=== PATIENT | female | born 1975 | race Two or more races ===

== ENCOUNTER 2022-02-22 16:12 | Emergency (ER) | payer OTHER ==
[2022-02-22 16:20] VITALS: BP 154/88; PULSE 90; RESP 16; TEMP 98.1
[2022-02-22 17:10] LABS: Amorphous Sediment,Urine Occasional /hpf; Appearance,Urine Cloudy (Clear); Bacteria,Urine Occasional /hpf; Bilirubin,Urine Negative (Negative); Blood,Urine Small (Negative); Color,Urine Light Yellow; Glucose,Urine (UA) Negative (Negative); Hyaline Casts,Urine 1 /lpf (0-2); Ketones,Urine Negative (Negative); Leukocyte Esterase,Urine Negative (Negative); Mucus,Urine Rare /hpf; Nitrite,Urine Negative (Negative); PH, Urine 5.5 (5.0-8.0); Protein,Urine Negative (Negative); RBC,Urine 2 /hpf (0-5); Specific Gravity,Urine 1.007 (1.001-1.035); Squamous Epithelial Cell,Urine 4 /hpf (0-4); Urobilinogen,Urine <2.0 mg/dL (<2.0); WBC,Urine 4 /hpf (0-5)
[2022-02-22 19:24] LABS: Basophils % (A) 1 %; Eosinophils # (A) 0.1 k/uL (0-0.7); Eosinophils % (A) 2 %; HCT 36.1 % (34.0-46.0); HGB 11.9 gm/dL (11.4-16.0); Lymphocytes # (A) 1.7 k/uL (1.0-4.8); Lymphocytes % (A) 25 %; MCH 27.7 pg (25.0-35.0); MCHC 32.9 g/dL (31.0-37.0); MCV 84.3 fL (80.0-100.0); Monocytes # (A) 0.2 k/uL (0-1.0); Monocytes % (A) 3 %; Neutrophils # (A) 4.5 k/uL (1.3-7.7); Neutrophils % (A) 66 %; Platelet Count 244 k/uL (150-450); RBC 4.28 m/uL (3.80-5.40); RDW 13.9 % (11.5-15.5); WBC 6.8 k/uL (3.8-10.6)
[2022-02-22 19:34] LABS: African American GFR (CKD) >90 (>60 ml/min/1.73 sqM); Anion Gap 13 mmol/L; Blood Urea Nitrogen 8 mg/dL (7-17); Carbon Dioxide 24 mmol/L (22-30); Chloride 102 mmol/L (98-107); Glucose 99 mg/dL (74-99); Non-African American GFR(CKD) >90 (>60 ml/min/1.73 sqM); Potassium 3.5 mmol/L (3.5-5.1); Sodium 139 mmol/L (137-145)
--- NOTE | 2022-02-22 21:00 | ED ---
General Adult HPI - General Chief complaint: Dizziness Stated complaint: dizziness - made appt online Time Seen by Provider: 02/22/22 20:42 Source: patient Mode of arrival: ambulatory Limitations: no limitations - History of Present Illness Initial comments: Dictation was produced using [employer] dictation software. please excuse any grammatical, word or spelling errors. Chief Complaint: 47-year-old female inthe past medical history presents to the emergency department for 2 weeks of vertigo History of Present Illness: 47-year-old female presents emergency department for 2 weeks of vertigo. Patient states that she is originally from [place]. She is here in town temporarily. She will be going back to [place] in May. She presents with her significant other at the bedside. Patient states that feels extremity spinning whenever she moves her head real quickly. States that it goes away whenever she states still. Denies any numbness and paresthesias to arms or legs. Denies any headache. Patient states that her symptoms have been ongoing for approximately 2 weeks daily. Patient reports that she's been having some mild rhinorrhea that has been intermittent. The ROS documented in this emergency department record has been reviewed and confirmed by me. Those systems with pertinent positive or negative responses have been documented in the HPI. All other systems are other negative and/or noncontributory. PHYSICAL EXAM: General Impression: Alert and oriented x3, not in acute distress HEENT: Normocephalic atraumatic, extra-ocular movements intact, pupils equal and reactive to light bilaterally, mucous membranes moist. Cardiovascular: Heart regular rate and rhythm Chest: Able to complete full sentences, no retractions, no tachypnea Abdomen: abdomen soft, non-tender, non-distended, no organomegaly Musculoskeletal: Pulses present and equal in all extremities, no peripheral edema Motor: no focal deficits noted Neurological: CN II-XII grossly intact, no focal motor or sensory deficits noted Skin: Intact with no visualized rashes Psych: Normal affect and mood ED course: 47-year-old female presents emergency department with clinical features consistent with BPPV. As upon arrival are within acceptable limits. Physical examination is benign. Patient does not have any high-risk features. CBC unremarkable. Metabolic panel is negative. Urinalysis is negative. Computed tomography scan is unremarkable for any intracranial processes. There did appear to be some findings in the maxillary sinus. Patient offered antibiotics for possible sinusitis causing her vertiginous symptoms. Patient is agreeable. Reevaluated at bedside at 9:30 PM found to be in stable medical condition. Patient be discharged. - Related Data Previous Rx's Medication Instructions Recorded Amoxic-Pot Clav 875-125Mg 1 tab PO BID 10 Days #20 tab 02/22/22 [Augmentin 875-125] Meclizine [Antivert] 25 mg PO TID PRN #15 tab 02/22/22 Allergies Allergy/AdvReac Type Severity Reaction Status Date / Time No Known Allergies Allergy Verified 02/22/22 16:20 Review of Systems ROS Statement: Those systems with pertinent positive or pertinent negative responses have been documented in the HPI. ROS Other: All systems not noted in ROS Statement are negative. Past Medical History Past Medical History: No Reported History History of Any Multi-Drug Resistant Organisms: None Reported Past Surgical History: No Surgical Hx Reported Past Psychological History: Anxiety Smoking Status: Never smoker Past Alcohol Use History: None Reported Past Drug Use History: None Reported General Exam Limitations: no limitations Course Vital Signs 02/22/22 16:17 Temperature 98.1 F Pulse Rate 90 Respiratory 16 Rate Blood Pressure 154/88 O2 Sat by Pulse 100 Oximetry Medical Decision Making - Lab Data Result diagrams: 02/22/22 19:10 02/22/22 19:10 Lab Results 02/22/22 02/22/22 02/22/22 Range/Units 16:34 16:34 19:10 WBC 6.8 (3.8-10.6) k/uL RBC 4.28 (3.80-5.40) m/uL Hgb 11.9 (11.4-16.0) gm/dL Hct 36.1 (34.0-46.0) % MCV 84.3 (80.0-100.0) fL MCH 27.7 (25.0-35.0) pg MCHC 32.9 (31.0-37.0) g/dL RDW 13.9 (11.5-15.5) % Plt Count 244 (150-450) k/uL MPV 9.0 Neutrophils % 66 % Lymphocytes % 25 % Monocytes % 3 % Eosinophils % 2 % Basophils % 1 % Neutrophils # 4.5 (1.3-7.7) k/uL Lymphocytes # 1.7 (1.0-4.8) k/uL Monocytes # 0.2 (0-1.0) k/uL Eosinophils # 0.1 (0-0.7) k/uL Basophils # 0.0 (0-0.2) k/uL Sodium (137-145) mmol/L Potassium (3.5-5.1) mmol/L Chloride (98-107) mmol/L Carbon Dioxide (22-30) mmol/L Anion Gap mmol/L BUN (7-17) mg/dL Creatinine (0.52-1.04) mg/dL Est GFR (CKD-EPI)AfAm (>60 ml/min/1.73 sqM) Est GFR (CKD-EPI)NonAf (>60 ml/min/1.73 sqM) Glucose (74-99) mg/dL Calcium (8.4-10.2) mg/dL Urine Color Light Yellow Urine Appearance Cloudy H (Clear) Urine pH 5.5 (5.0-8.0) Ur Specific [place] 1.007 (1.001-1.035) Urine Protein Negative (Negative) Urine Glucose (UA) Negative (Negative) Urine Ketones Negative (Negative) Urine Blood Small H (Negative) Urine Nitrite Negative (Negative) Urine Bilirubin Negative (Negative) Urine Urobilinogen <2.0 (<2.0) mg/dL Ur Leukocyte Esterase Negative (Negative) Urine RBC 2 (0-5) /hpf Urine WBC 4 (0-5) /hpf Ur Squamous Epith Cells 4 (0-4) /hpf Amorphous Sediment Occasional H (None) /hpf Urine Bacteria Occasional H (None) /hpf Hyaline Casts 1 (0-2) /lpf Urine Mucus Rare H (None) /hpf Urine HCG, Qual Not Detected (Not Detectd) 02/22/22 Range/Units 19:10 WBC (3.8-10.6) k/uL RBC (3.80-5.40) m/uL Hgb (11.4-16.0) gm/dL Hct (34.0-46.0) % MCV (80.0-100.0) fL MCH (25.0-35.0) pg MCHC (31.0-37.0) g/dL RDW (11.5-15.5) % Plt Count (150-450) k/uL MPV Neutrophils % % Lymphocytes % % Monocytes % % Eosinophils % % Basophils % % Neutrophils # (1.3-7.7) k/uL Lymphocytes # (1.0-4.8) k/uL Monocytes # (0-1.0) k/uL Eosinophils # (0-0.7) k/uL Basophils # (0-0.2) k/uL Sodium 139 (137-145) mmol/L Potassium 3.5 (3.5-5.1) mmol/L Chloride 102 (98-107) mmol/L Carbon Dioxide 24 (22-30) mmol/L Anion Gap 13 mmol/L BUN 8 (7-17) mg/dL Creatinine 0.51 L (0.52-1.04) mg/dL Est GFR (CKD-EPI)AfAm >90 (>60 ml/min/1.73 sqM) Est GFR (CKD-EPI)NonAf >90 (>60 ml/min/1.73 sqM) Glucose 99 (74-99) mg/dL Calcium 9.0 (8.4-10.2) mg/dL Urine Color Urine Appearance (Clear) Urine pH (5.0-8.0) Ur Specific [place] (1.001-1.035) Urine Protein (Negative) Urine Glucose (UA) (Negative) Urine Ketones (Negative) Urine Blood (Negative) Urine Nitrite (Negative) Urine Bilirubin (Negative) Urine Urobilinogen (<2.0) mg/dL Ur Leukocyte Esterase (Negative) Urine RBC (0-5) /hpf Urine WBC (0-5) /hpf Ur Squamous Epith Cells (0-4) /hpf Amorphous Sediment (None) /hpf Urine Bacteria (None) /hpf Hyaline Casts (0-2) /lpf Urine Mucus (None) /hpf Urine HCG, Qual (Not Detectd) Disposition Clinical Impression: Vertigo Disposition: HOME SELF-CARE Condition: Good Instructions (If sedation given, give patient instructions): Vertigo (ED) Additional Instructions: you are given referrals for primary care physician Prescriptions: Meclizine [Antivert] 25 mg PO TID PRN #15 tab PRN Reason: dizziness Amoxic-Pot Clav 875-125Mg [Augmentin 875-125] 1 tab PO BID 10 Days #20 tab Is patient prescribed a controlled substance at d/c from ED?: No Referrals: William Yoder MD [REFERRING] - 1-2 days Jessica Moreno MD [STAFF PHYSICIAN] - 1-2 days Ni Quiñones MD [STAFF PHYSICIAN] - 1-2 days Time of Disposition: 21:29
--- NOTE | 2022-02-22 21:20 | CT ---
EXAMINATION TYPE: CT brain wo con DATE OF EXAM: 02/22/2022 COMPARISON: None HISTORY: vertigo x [address] DLP: 1180.4 mGycm Automated exposure control for dose reduction was used. Images of the brain obtained with no contrast. Ventricles have normal size. There is no mass effect or midline shift. No sign of intracranial hemorr derick. The calvarium is intact. IMPRESSION: Negative unenhanced head CT scan.
== END 2022-02-22 21:47 | disposition home or self-care (01) ==
LOC: EC 16:12
DX: R42 Dizziness and giddiness (principal)
CPT/HCPCS: 36415; 70450; 80048; 81001; 81025; 85025; 99285